=== PATIENT | female | born 1975 | race Hispanic/Latino ===

== ENCOUNTER 2018-09-27 14:54 | Emergency (ER) | payer MEDICAID, SELFPAY ==
[2018-09-27 15:30] LABS: Bacteria/HPF 1+ HPF (None Seen); Bilirubin Negative (Negative); Blood, Urine 3+ (Negative); Clarity Clear (Clear); Glucose, Urine (Dipstick) Normal (Negative); Leukocyte Negative Leu/uL (Negative); Nitrite Negative (Negative); Protein, Urine (Dipstick) 20 mg/dL (Neg-Trace); Urobilinogen Normal mg/dL (Less than 2); WBC/HPF 0-3 HPF (0-3)
[2018-09-27 15:32] LABS: #Eosinphils 0.1 thou/uL (0.0-0.7); #Lymphocytes 1.9 thou/uL (1.20-3.40); #Monocytes 0.9 thou/uL (0.11-0.59); #Neutrophils 7.9 thou/uL (1.40-6.50); %Basophils 0.4 % (0.0-1.0); %Eosinophils 0.6 % (0.0-10.0); %Lymphocytes 17.3 % (21.0-51.0); %Monocytes 8.2 % (0.0-10.0); %Neutrophils 73.5 % (42.0-75.0); Hemoglobin 14.1 g/dL (12.0-16.0); Mean Corpuscular HGB CONC 32.8 g/dL (32.0-36.0); Mean Corpuscular Hemoglobin 32.5 pg (27.0-31.0); Mean Platelet Volume 9.3 fL (7.4-10.4); Platelet Count 183 thou/uL (130-400); RBC Distribution Width 12.4 % (11.5-14.5); Red Blood Cell (RBC) Count 4.32 mill/uL (4.20-5.40); White Blood Cell (WBC) Count 10.8 thou/uL (4.8-10.8)
[2018-09-27 15:45] LABS: ALT (SGPT) 16 U/L (8-55); AST (SGOT) 17 U/L (5-34); Albumin 4.6 g/dL (3.5-5.0); Alkaline Phosphatase 70 U/L (40-150); Anion Gap 15 mmol/L (10-20); BUN (Urea Nitrogen) 16 mg/dL (7.0-18.7); Bilirubin, Total 0.5 mg/dL (0.2-1.2); Calc. Creatinine Clearance 0 mL/min (70-130); Calcium 9.7 mg/dL (7.8-10.44); Carbon Dioxide 20 mmol/L (22-29); Chloride 107 mmol/L (98-107); Estimated GFR-MDRD 85; Globulin 2.9 g/dL (2.4-3.5); Glucose 101 mg/dL (70-105); Potassium 3.9 mmol/L (3.5-5.1); Protein, Total 7.5 g/dL (6.0-8.3); Sodium 138 mmol/L (136-145)
--- NOTE | 2018-09-27 16:28 | ULT ---
Pelvic ultrasound: 09/27/2018 COMPARISON: None HISTORY: female with vaginal bleeding TECHNIQUE: Multiplanar grayscale sonographic imaging of the pelvis obtained with transabdominal and e ndovaginal imaging. Ovaries are assessed with color flow and spectral analysis FINDINGS: The uterus is retroverted. No free fluid seen in the pelvis. There is a 5 mm round hypoechoic area within the endometrial stripe suggesting a small intrauterine g estational sac. However, it does not contain a pole or a yolk sac. Left ovary measures approximately 1.6 x 2.6 x 1.3 cm. Left ovary demonstrates blood flow without evid ence for mass. Right ovary measures approximately 1.8 x 2.9 x 1.5 cm and demonstrates blood flow without evidence fo r mass. Presumed gestational sac demonstrates a diameter of 5 mm, which would correlate with a 5 week 2 day g estation. IMPRESSION: Findings suggesting a gestational sac with no pole or yolk sac seen at this time. C orrelation with quantitative beta hCG is essential. Findings could be on the basis of a normal early or spontaneous . A pseudogestational sac on the basis of sonographically occu lt ectopic is a less likely possibility which will be best assessed with quantitative beta hCG at this time and in 48 hours.
== END 2018-09-27 17:04 | disposition home or self-care (01) ==
LOC: ERS 14:54
DX: O46.91 Antepartum hemorrhage, unspecified, first trimester (principal); Z3A.01 Less than 8 weeks gestation of pregnancy
CPT/HCPCS: 36415; 76856; 80053; 81003; 81015; 84702; 85025; 86900; 86901